=== PATIENT | male | born 1980 | race Caucasian/White ===

== ENCOUNTER 2024-06-19 08:13 | Outpatient (CLI) | payer OTHER, SELFPAY | END 2024-06-19 08:14 | disposition home or self-care (01) | PROVIDERS: PCP Family Medicine; Visit Provider Family Medicine | DX: I10 Essential (primary) hypertension (principal); M10.9 Gout, unspecified; I49.3 Ventricular premature depolarization; R53.83 Other fatigue; Z13.220 Encounter for screening for lipoid disorders | CPT/HCPCS: 80053; 80061; 84443; 84550 ==

== ENCOUNTER 2024-07-01 19:22 | Outpatient (CLI) | payer OTHER, SELFPAY ==
--- NOTE | 2024-07-15 08:46 | W.PM.SLEEP ---
Sleep Study Details Details Interpreting Provider: Orestes Date of Sleep Study: 07/01/24 Sleep Study Details: STUDY TYPE:? Home unattended ? BMI:? 49.3 ORDERING PROVIDER:? Dixie INDICATION:? Concern about sleep apnea ? SLEEP SUMMARY:? Monitor time 473.2 minutes RESPIRATORY SUMMARY:? AHI 12.4 Low oxygen 83 4% of study oxygen below 90% Snoring 78.1% PERIODIC LIMB MOVEMENTS OF SLEEP:? Not recorded CARDIAC:? Range 54 -88 IMPRESSION:? Mild obstructive sleep apnea RECOMMENDATION: Weight loss is clearly recommended with a BMI of 49.3. Treatment options for sleep apnea if symptomatic would include CPAP or dental appliance.
== END 2024-07-01 19:23 | disposition home or self-care (01) ==
LOC: SLEEP 19:25
PROVIDERS: PCP Family Medicine; Visit Provider Family Medicine
DX: G47.33 Obstructive sleep apnea (adult) (pediatric) (principal)
CPT/HCPCS: 95806

== ENCOUNTER 2024-08-15 13:59 | Emergency (ER) | payer OTHER, SELFPAY ==
[2024-08-15 14:10] VITALS: BP 144/82; PULSE 74; RESP 18; TEMP 36.3; O2SAT 96; BMI 44.5
--- NOTE | 2024-08-15 14:25 | CRLHL7_ITS ---
For Patients: As a result of the Century Cures Act, medical imaging exams and procedure reports are released immediately into your electronic medical record. You may view this report before your referring provider. If you have questions, please contact your health care provider. INDICATION: Medial leg pain TECHNIQUE: Ultrasound venous duplex lower right extremity. Compression venous exam was performed using matute-scale, color Doppler, and spectral Doppler imaging. COMPARISON: None. FINDINGS: Sonographic imaging demonstrates the right common femoral, deep femoral, superficial femoral, popliteal, posterior tibial and greater saphenous and the contralateral left common femoral veins to be fully compressible with normal color Doppler blood flow. IMPRESSION: Normal right lower extremity venous ultrasound, no sign of deep venous thrombosis. Dictated by Pablo Chu MD @ 08/15/2024 3:08:47 PM (Electronically Signed)
--- NOTE | 2024-08-15 14:52 | ED_ITS ---
HPI - General Adult General Chief complaint: Extremity Pain/Injury, Lower Stated complaint: possible blood clot R leg Time Seen by Provider: 08/15/24 14:01 Source: patient Mode of arrival: ambulatory Limitations: no limitations History of Present Illness HPI narrative: Patient is a 43-year-old male presenting to the emergency department for right like pain. He states he noticed the pain about 24 hours ago. Pain is on the medial aspect of his lower leg just distal to the knee. He states he has a history of varicocele veins and will have pain similar to this with his varicose veins but states this time the pain was more acute and severe than typically. He spoke to the triage nurse was told to come to the emergency department for a blood clot. Has not noticed any lower extremity swelling. States the pain is for a localized the 1 area on his leg. Is not having any fevers or chills. Denies any known injuries to the leg. Denies any knee pain Related Data Home Medications ?Medication ?Instructions ?Recorded ?Confirmed lisinopril 40 mg tablet 40 mg PO DAILY 06/19/24 08/12/24 Previous Rx's ?Medication ?Instructions ?Recorded bupropion HCl 150 mg 24 hr tablet, 150 mg PO DAILY #90 tabs 06/19/24 extended release metoprolol succinate 25 mg 25 mg PO QDAY #90 tabs 06/19/24 tablet,extended release 24 hr (Toprol XL) Allergies Allergy/AdvReac Type Severity Reaction Status Date / Time Penicillins Allergy Severe Hives Verified 08/12/24 14:56 Review of Systems Status of ROS: Reports: 10 or more systems reviewed and unremarkable except as noted in History and below [facility] Medical History Depression ?F32.A - Depression, unspecified (ICD-10) Numerous skin moles ?D22.9 - Melanocytic nevi, unspecified (ICD-10) Obesity ?E66.9 - Obesity, unspecified (ICD-10) Symptomatic PVCs ?I49.3 - Ventricular premature depolarization (ICD-10) Gout ?M10.9 - Gout, unspecified (ICD-10) HTN (hypertension) ?I10 - Essential (primary) hypertension (ICD-10) Social History Smoking Status: Unknown if ever smoked Do you use any of these nicotine containing products: None Second hand tobacco smoke exposure: No How often do you have a drink containing alcohol: never AUDIT-C Alcohol total score: 0 Non-prescribed substance use: denies use Little interest or pleasure in doing things: not at all Feeling down, depressed, or hopeless: not at all Exam Narrative: Exam Narrative: Const: Well-nourished, Well-developed, in no distress Eyes: PERRL, no conjunctival injection, and symmetrical lids HENT: Atraumatic external nose and ears. Moist mucous membranes. Neck: Symmetric, trachea midline, No thyromegaly. CVS: RRR, No murmurs or gallops. Peripheral pulses 2+ and equal in all extremities RESP: Unlabored respiratory effort. Clear to auscultation bilaterally. GI: Nontender/Nondistended, No rebound or guarding. MSK:Extremities w/o deformity, Normal Active ROM, mild tenderness to right lower extremity just distal to the knee on the medial aspect Skin: Warm, Dry. No rashes or lesions. Neuro: Normal Muscle tone, No focal neurological deficits. Psych: Awake, Alert, & Oriented x3. Appropriate mood and affect. Const: Vital Signs, click to edit/add: Vital Signs - 24 hr 08/15/24 14:10 Temperature 97.3 F L Pulse Rate [Right Pulse Oximeter] 74 Respiratory Rate 18 Blood Pressure [Ri ght Upper Arm] 144/82 H Pulse Oximetry 96 Oxygen Delivery Me thod Room Air Course Vital Signs Vital signs: Initial Vital Signs Temperature 97.3 F L 08/15/24 14:10 Temperature Source Temporal Artery Scan 08/15/24 14:10 Pulse Rate 74 08/15/24 14:10 Respiratory Rate 18 08/15/24 14:10 Blood Pressure 144/82 H 08/15/24 14:10 Blood Pressure Mean 102 08/15/24 14:10 Blood Pressure Position Sitting 08/15/24 14:10 Pulse Oximetry 96 08/15/24 14:10 Oxygen Delivery Method Room Air 08/15/24 14:10 Vital Signs Temperature 97.3 F L 08/15/24 14:10 Pulse Rate 74 08/15/24 14:10 Respiratory Rate 18 08/15/24 14:10 Blood Pressure 144/82 H 11/01/24 14:10 Pulse Oximetry 96 08/15/24 14:10 Oxygen Delivery Method Room Air 08/15/24 14:10 Temperature 97.3 F L 08/15/24 14:10 Pulse Rate 74 08/15/24 14:10 Respiratory Rate 18 08/15/24 14:10 Blood Pressure 144/82 H 08/15/24 14:10 Pulse Oximetry 96 08/15/24 14:10 Oxygen Delivery Method Room Air 08/15/24 14:10 Medical Decision Making MDM Narrative Medical decision making narrative: Patient is a 43-year-old male presenting to emergency department for leg pain. Pain is well to rise with no lower extremity swelling and blood clot seems unlikely we will do an ultrasound just to better evaluate. Symptoms could be from him varicose veins. Goes related to the muscle strain and delayed presentation. Is not having any knee pain and no signs of infection. Ultrasound shows no acute concerning abnormalities. This time I cannot say for sure was causing symptoms but not see any acute concerning findings. Can be discharged at this time he is agreeable to this plan. Imaging Data Venous US: Attestation: I have reviewed the pertinent imaging results. Radiologist's impression: Normal right lower extremity venous ultrasound, no sign of deep venous thrombosis. Dictated by Pablo Chu MD @ 08/15/2024 3:08:47 PM Discharge Plan Discharge Clinical Impression: Acute leg pain Instructions: Leg Pain (ED) Additional Instructions: I cannot say for certain what is causing your leg pain but I do not see any concerning abnormalities at this time. If it persists follow-up the primary care provider. Take Tylenol ibuprofen for pain. Return for new or worsening symptoms. Prescriptions: No Action lisinopril 40 mg tablet 40 mg PO DAILY metoprolol succinate [Toprol XL] 25 mg tablet extended release 24 hr 25 mg PO QDAY Qty: 90 1RF bupropion HCl 150 mg tablet extended release 24 hr 150 mg PO DAILY Qty: 90 3RF Follow Up/Referrals: Gen Colin MD [Primary Care Provider] - Stand Alone Forms: MyHealth Info Instructions
== END 2024-08-15 15:42 | disposition home or self-care (01) ==
LOC: ED 15:22
PROVIDERS: Emergency Provider Student in an Organized Health Care Education/Training Program; PCP Family Medicine
DX: M79.661 Pain in right lower leg (principal)
CPT/HCPCS: 93971; 99282; 99283

== ENCOUNTER 2025-06-29 11:12 | Outpatient (CLI) | payer OTHER, SELFPAY | END 2025-06-29 11:13 | disposition home or self-care (01) | PROVIDERS: PCP Family Medicine; Visit Provider Family Medicine | DX: E78.00 Pure hypercholesterolemia, unspecified (principal); I10 Essential (primary) hypertension; M10.9 Gout, unspecified | CPT/HCPCS: 80053; 84550 ==

== ENCOUNTER 2025-07-01 14:56 | Outpatient (RCR) | payer OTHER, SELFPAY | END 2025-09-21 14:21 | disposition home or self-care (01) | PROVIDERS: PCP Family Medicine; Visit Provider Family Medicine | DX: S29.011D Strain of muscle and tendon of front wall of thorax, subsequent encounter (principal); Z51.89 Encounter for other specified aftercare | CPT/HCPCS: 97110; 97161 ==

== ENCOUNTER 2025-07-10 08:43 | Outpatient (CLI) | payer OTHER, SELFPAY | END 2025-07-10 08:44 | disposition home or self-care (01) | LOC: RAD 08:44 | PROVIDERS: PCP Family Medicine; Visit Provider Family Medicine | DX: I10 Essential (primary) hypertension (principal); I49.3 Ventricular premature depolarization; I51.7 Cardiomegaly | CPT/HCPCS: 93306 ==